=== PATIENT | female | born 1965 | race Caucasian/White ===

== ENCOUNTER 2017-03-02 08:55 | Outpatient (CLI) | payer OTHER ==
[2017-03-02 12:31] LABS: BASOPHILS % (AUTO) 0.4 %; EOSINOPHILS # (AUTO) 0.2 10^3/uL (0.0-0.7); EOSINOPHILS % (AUTO) 1.9 %; HCT - HEMATOCRIT 37.8 % (37.0-47.0); HGB - HEMOGLOBIN 12.8 g/dL (12.0-16.0); LYMPHOCYTES # (AUTO) 2.4 10^3/uL (1.5-3.5); LYMPHOCYTES % (AUTO) 25.2 %; MEAN CORPUSCULAR HEMOGLOBIN 28.6 pg (27.0-31.0); MEAN CORPUSCULAR HGB CONC 33.7 g/dL (32.0-36.0); MEAN CORPUSCULAR VOLUME 84.7 fL (81.0-99.0); MEAN PLATELET VOLUME 8.1 fL (7.9-10.8); MONOCYTES # (AUTO) 0.6 10^3/uL (0.0-1.0); MONOCYTES % (AUTO) 6.2 %; NEUTROPHILS # (AUTO) 6.2 10^3/uL (1.5-6.6); NEUTROPHILS % (AUTO) 66.3 %; NUCLEATED RED BLOOD CELLS AUTO 0.1 /100WBC; RED BLOOD COUNT 4.47 10^6/uL (4.20-5.40); RED CELL DISTRIBUTION WIDTH 14.3 % (12.0-15.0); UNCORRECTED WHITE BLOOD COUNT 9.4 x10^3/uL; WHITE BLOOD COUNT 9.4 x10^3/uL (4.8-10.8)
[2017-03-02 13:09] LABS: HEMOGLOBIN A1C 0.54 g/dL
[2017-03-02 14:02] LABS: ALBUMIN/GLOBULIN RATIO 1.3 (1.0-2.2); BILIRUBIN,TOTAL 0.6 mg/dL (0.2-1.0); BUN - BLOOD UREA NITROGEN 14 mg/dL (6-20); CALCIUM 9.1 mg/dL (8.5-10.3); CARBON DIOXIDE - CO2 25 mmol/L (21-32); CHLORIDE 103 mmol/L (101-111); CHOLESTEROL 208 mg/dL; CREATININE 0.7 mg/dL (0.4-1.0); GFR - MDRD 89 (>89); GLUCOSE 101 mg/dL (70-100); HDL CHOLESTEROL 52 mg/dL; LDL/HDL RATIO 2.2 (<4.4); POTASSIUM 4.2 mmol/L (3.5-5.0); SODIUM 136 mmol/L (135-145); TOTAL PROTEIN 7.3 g/dL (6.7-8.2); TRIGLYCERIDES 200 mg/dL; VLDL CHOLESTEROL 40 mg/dL
[2017-03-03 04:27] LABS: TEST RESULT REPORT (())
[2017-03-05 00:02] LABS: HSV 1/2 IGM INDEX <0.90 INDEX (()); HSV 2 IGG INDEX <0.90 INDEX (())
== END 2017-03-02 08:56 | disposition home or self-care (01) ==
LOC: LAB.WCP 08:55
PROVIDERS: ATTEND Family Medicine
DX: Z00.00 Encounter for general adult medical examination without abnormal findings (principal); I10 Essential (primary) hypertension; E78.5 Hyperlipidemia, unspecified; Z11.3 Encounter for screening for infections with a predominantly sexual mode of transmission
CPT/HCPCS: 36415; 80053; 80061; 81599; 83036; 84443; 85025; 86694; 86695; 86696; 86803; 87389; 87491; 87591

== ENCOUNTER 2017-03-28 13:34 | Outpatient (CLI) | payer OTHER ==
--- NOTE | 2017-03-29 12:56 | Mammography Report ---
DIGITAL SCREENING MAMMOGRAM: 03/28/2017 COMPARISON: 08/23/2014 TECHNIQUE: Bilateral digital CC, MLO, and left true lateral images are obtained. FINDINGS: There is extensive fatty replacement of the breast tissue. A small focal area of increase d density in the lower inner left breast appears unchanged. Scattered benign-appearing calcification s are stable. No new suspicious dominant mass, architectural distortion, skin thickening, suspicious microcalcifications, or interval change. IMPRESSION: NEGATIVE. BIRADS CATEGORY 1. SUGGEST ROUTINE SCREENING IN 12 MONTHS. STANDARD QUALIFYING STATEMENTS 1. This examination was reviewed with the aid of Computer-Aided Detection (CAD). 2. A negative or benign imaging report should not delay biopsy if clinically suspicious findings are present. Consider surgical consultation if warranted. More than 5% of cancers are not identified by i maging. 3. Dense breasts may obscure an underlying neoplasm. JOB #: [id number] EXT JOB #:[id number]
== END 2017-03-28 13:35 | disposition home or self-care (01) ==
LOC: DI 13:34
PROVIDERS: ATTEND Family Medicine
DX: N63 Unspecified lump in breast (principal)
CPT/HCPCS: 77066

== ENCOUNTER 2017-03-30 08:31 | Outpatient (CLI) | payer OTHER ==
--- NOTE | 2017-03-30 10:43 | Ultrasound Report ---
LEFT BREAST ULTRASOUND: 03/30/2017 HISTORY: Palpable lump left breast 11 o'clock position, nipple +7. TECHNIQUE: Real-time scanning by the team physician with saved static images reviewed. FINDINGS: In the area of the palpable lump, no cystic or solid mass is seen. No evidence of archite ctural distortion or calcification. IMPRESSION: NEGATIVE LEFT BREAST UPPER INNER QUADRANT ULTRASOUND. SUGGEST CLINICAL FOLLOWUP. JOB #: [id number] EXT JOB #:[id number]
== END 2017-03-30 08:32 | disposition home or self-care (01) ==
LOC: DI 08:31
PROVIDERS: ATTEND Family Medicine
DX: N63 Unspecified lump in breast (principal)
CPT/HCPCS: 76642

== ENCOUNTER 2017-08-09 08:00 | Outpatient (CLI) | payer OTHER ==
[2017-08-09 13:00] LABS: BASOPHILS # (AUTO) 0.1 10^3/uL (0.0-0.1); BASOPHILS % (AUTO) 0.7 %; EOSINOPHILS # (AUTO) 0.2 10^3/uL (0.0-0.7); EOSINOPHILS % (AUTO) 2.3 %; HGB - HEMOGLOBIN 13.1 g/dL (12.0-16.0); LYMPHOCYTES # (AUTO) 2.2 10^3/uL (1.5-3.5); LYMPHOCYTES % (AUTO) 30.7 %; MEAN CORPUSCULAR HEMOGLOBIN 28.4 pg (27.0-31.0); MEAN CORPUSCULAR HGB CONC 33.5 g/dL (32.0-36.0); MEAN CORPUSCULAR VOLUME 84.9 fL (81.0-99.0); MEAN PLATELET VOLUME 8.4 fL (7.9-10.8); MONOCYTES # (AUTO) 0.5 10^3/uL (0.0-1.0); MONOCYTES % (AUTO) 6.5 %; NEUTROPHILS # (AUTO) 4.3 10^3/uL (1.5-6.6); NEUTROPHILS % (AUTO) 59.8 %; PLT - PLATELET COUNT 225 10^3/uL (130-450); RED BLOOD COUNT 4.59 10^6/uL (4.20-5.40); RED CELL DISTRIBUTION WIDTH 14.3 % (12.0-15.0); WHITE BLOOD COUNT 7.3 x10^3/uL (4.8-10.8)
[2017-08-09 13:45] LABS: ALBUMIN 4.4 g/dL (3.2-5.5); ALBUMIN/GLOBULIN RATIO 1.4 (1.0-2.2); ALKALINE PHOSPHATASE 45 IU/L (42-121); ALT ALANINE AMINOTRANSFERASE 52 IU/L (10-60); AST ASPARTATE AMINOTRANSFERASE 42 IU/L (10-42); BILIRUBIN,TOTAL 0.5 mg/dL (0.2-1.0); BUN - BLOOD UREA NITROGEN 18 mg/dL (6-20); CALCIUM 9.2 mg/dL (8.5-10.3); CARBON DIOXIDE - CO2 24 mmol/L (21-32); CHLORIDE 105 mmol/L (101-111); CHOLESTEROL 157 mg/dL; CREATININE 0.8 mg/dL (0.4-1.0); GFR - MDRD 76 (>89); GLUCOSE 92 mg/dL (70-100); HDL CHOLESTEROL 39 mg/dL; LDL CHOLESTEROL,CALCULATED 91 mg/dL; LDL/HDL RATIO 2.3 (<4.4); SODIUM 135 mmol/L (135-145); TOTAL PROTEIN 7.6 g/dL (6.7-8.2); VLDL CHOLESTEROL 27 mg/dL
[2017-08-09 14:01] LABS: HB2 TOTAL 14.4 g/dL; HEMOGLOBIN A1C 0.5 g/dL; HEMOGLOBIN A1C % 5.3 % (4.6-6.2)
== END 2017-08-09 08:01 | disposition home or self-care (01) ==
LOC: LAB.WCP 08:00
PROVIDERS: ATTEND Family Medicine
DX: I10 Essential (primary) hypertension (principal); E78.5 Hyperlipidemia, unspecified; R73.09 Other abnormal glucose; F41.8 Other specified anxiety disorders
CPT/HCPCS: 36415; 80053; 80061; 83036; 83721; 84443; 85025

== ENCOUNTER 2017-09-28 08:00 | Outpatient (CLI) | payer OTHER | END 2017-09-28 08:01 | disposition home or self-care (01) | LOC: LAB.WCP 08:00 | PROVIDERS: ATTEND Physician Assistant | DX: R35.0 Frequency of micturition (principal) | CPT/HCPCS: 87086 ==

== ENCOUNTER 2017-11-01 08:00 | Outpatient (CLI) | payer OTHER | END 2017-11-01 08:01 | disposition home or self-care (01) | LOC: LAB.R 08:00 | PROVIDERS: ATTEND Family Medicine | DX: B37.3 Candidiasis of vulva and vagina (principal) | CPT/HCPCS: 87480; 87510; 87660 ==

== ENCOUNTER 2018-03-03 08:15 | Outpatient (CLI) | payer OTHER ==
[2018-03-03 09:00] LABS: HB2 TOTAL 14.7 g/dL; HEMOGLOBIN A1C 0.47 g/dL; HEMOGLOBIN A1C % 5.1 % (4.6-6.2)
[2018-03-03 09:01] LABS: ALBUMIN 4.3 g/dL (3.2-5.5); ALBUMIN/GLOBULIN RATIO 1.3 (1.0-2.2); ALKALINE PHOSPHATASE 55 IU/L (42-121); ALT ALANINE AMINOTRANSFERASE 32 IU/L (10-60); AST ASPARTATE AMINOTRANSFERASE 25 IU/L (10-42); BILIRUBIN,TOTAL 0.9 mg/dL (0.2-1.0); BUN - BLOOD UREA NITROGEN 14 mg/dL (6-20); CALCIUM 9.1 mg/dL (8.5-10.3); CARBON DIOXIDE - CO2 22 mmol/L (21-32); CHLORIDE 107 mmol/L (101-111); CHOL/HDL RATIO 3.5 (<4.4); CHOLESTEROL 149 mg/dL; CREATININE 0.7 mg/dL (0.4-1.0); GFR - MDRD 89 (>89); GLUCOSE 110 mg/dL (70-100); HDL CHOLESTEROL 42 mg/dL; LDL CHOLESTEROL,CALCULATED 84 mg/dL; SODIUM 138 mmol/L (135-145); TOTAL PROTEIN 7.5 g/dL (6.7-8.2); VLDL CHOLESTEROL 23 mg/dL
== END 2018-03-03 08:16 | disposition home or self-care (01) ==
LOC: LAB 08:15
PROVIDERS: ATTEND Family Medicine
DX: E78.5 Hyperlipidemia, unspecified (principal); R73.03 Prediabetes
CPT/HCPCS: 36415; 80053; 80061; 83036; 83721

== ENCOUNTER 2018-08-16 15:14 | Outpatient (CLI) | payer OTHER ==
--- NOTE | 2018-08-17 08:10 | Mammography Report ---
Reason: SCREENING MAMMO Procedure Date: 08/16/2018 Accession Number: [id number] / [id number] Procedure: COLLEEN - Screening Mammo w/Juan CPT Code: FULL RESULT: EXAM: Screening Mammo w/Juan DATE: 08/16/2018 4:04 PM CLINICAL HISTORY: Routine screening. No reported personal or family history of breast cancer. History of prior breast reduction surgery. TECHNIQUE: Bilateral CC and MLO views were obtained. COMPARISON: 9 02/25/2017 through 08/23/2014 FINDINGS: The breasts demonstrate scattered fibroglandular densities bilaterally. Bilateral breasts: There are stable reduction mammoplasty changes. There are no suspicious masses, calcifications or areas of distortion. IMPRESSION: Benign findings RECOMMENDATION: Routine annual screening unless otherwise clinically indicated. BI-RADS CATEGORY 2: Benign findings STANDARD QUALIFYING STATEMENTS: 1. This examination was not reviewed with the aid of Computer-Aided Detection (CAD). 2. A negative or benign imaging report should not preclude biopsy if clinically suspicious findings are present. 3. Dense breasts may obscure an underlying neoplasm. 4. This examination was reviewed with the aid of 3D breast imaging (tomosynthesis).
== END 2018-08-16 15:15 | disposition home or self-care (01) ==
LOC: DI 15:14
DX: Z12.31 Encounter for screening mammogram for malignant neoplasm of breast (principal)
CPT/HCPCS: 77063; 77067

== ENCOUNTER 2018-12-08 08:00 | Outpatient (CLI) | payer OTHER ==
[2018-12-08 19:09] LABS: ALBUMIN 3.9 g/dL (3.2-5.5); ALBUMIN/GLOBULIN RATIO 1.3 (1.0-2.2); ALKALINE PHOSPHATASE 55 IU/L (42-121); ALT ALANINE AMINOTRANSFERASE 24 IU/L (10-60); AST ASPARTATE AMINOTRANSFERASE 23 IU/L (10-42); BILIRUBIN,TOTAL 0.4 mg/dL (0.2-1.0); BUN - BLOOD UREA NITROGEN 17 mg/dL (6-20); CALCIUM 8.8 mg/dL (8.5-10.3); CARBON DIOXIDE - CO2 24 mmol/L (21-32); CHLORIDE 104 mmol/L (101-111); CHOL/HDL RATIO 3.1 (<4.4); CHOLESTEROL 189 mg/dL; CREATININE 0.6 mg/dL (0.4-1.0); GFR - MDRD 105 (>89); GLUCOSE 83 mg/dL (70-100); HDL CHOLESTEROL 61 mg/dL; LDL CHOLESTEROL,CALCULATED 101 mg/dL; LDL/HDL RATIO 1.7 (<4.4); SODIUM 137 mmol/L (135-145); VLDL CHOLESTEROL 27 mg/dL
[2018-12-08 19:14] LABS: HB2 TOTAL 12.8 g/dL; HEMOGLOBIN A1C 0.46 g/dL; HEMOGLOBIN A1C % 5.4 % (4.6-6.2)
== END 2018-12-08 23:59 | disposition home or self-care (01) ==
LOC: LAB.WCP 08:00
PROVIDERS: ATTEND Family Medicine
DX: E78.5 Hyperlipidemia, unspecified (principal); R73.03 Prediabetes
CPT/HCPCS: 36415; 80053; 80061; 83036; 83721

== ENCOUNTER 2019-03-29 12:59 | Outpatient (CLI) | payer OTHER | END 2019-03-29 13:00 | disposition home or self-care (01) | LOC: RT 12:59 | PROVIDERS: ATTEND Internal Medicine Gastroenterology | DX: I10 Essential (primary) hypertension (principal) | CPT/HCPCS: 93005 ==

== ENCOUNTER 2019-08-21 10:10 | Outpatient (CLI) | payer BC, OTHER ==
[2019-08-21 12:05] LABS: BASOPHILS # (AUTO) 0.1 10^3/uL (0.0-0.1); BASOPHILS % (AUTO) 0.6 %; EOSINOPHILS # (AUTO) 0.4 10^3/uL (0.0-0.7); EOSINOPHILS % (AUTO) 4.4 %; HGB - HEMOGLOBIN 12.4 g/dL (12.0-16.0); LYMPHOCYTES # (AUTO) 2.5 10^3/uL (1.5-3.5); LYMPHOCYTES % (AUTO) 29.8 %; MEAN CORPUSCULAR HEMOGLOBIN 27.9 pg (27.0-31.0); MEAN CORPUSCULAR HGB CONC 31.6 g/dL (32.0-36.0); MEAN CORPUSCULAR VOLUME 88.5 fL (81.0-99.0); MEAN PLATELET VOLUME 9.7 fL (7.9-10.8); MONOCYTES # (AUTO) 0.6 10^3/uL (0.0-1.0); MONOCYTES % (AUTO) 6.5 %; NEUTROPHILS # (AUTO) 4.9 10^3/uL (1.5-6.6); NEUTROPHILS % (AUTO) 58.1 %; PLT - PLATELET COUNT 242 10^3/uL (130-450); RED BLOOD COUNT 4.44 10^6/uL (4.20-5.40); RED CELL DISTRIBUTION WIDTH 13.6 % (12.0-15.0); WHITE BLOOD COUNT 8.4 x10^3/uL (4.8-10.8)
[2019-08-21 12:30] LABS: HB2 TOTAL 12.1 g/dL; HEMOGLOBIN A1C 0.47 g/dL; HEMOGLOBIN A1C % 5.7 % (4.6-6.2)
[2019-08-21 12:43] LABS: ALBUMIN 4.2 g/dL (3.2-5.5); ALBUMIN/GLOBULIN RATIO 1.3 (1.0-2.2); ALKALINE PHOSPHATASE 52 IU/L (42-121); ALT ALANINE AMINOTRANSFERASE 33 IU/L (10-60); AST ASPARTATE AMINOTRANSFERASE 28 IU/L (10-42); BILIRUBIN,TOTAL 0.7 mg/dL (0.2-1.0); BUN - BLOOD UREA NITROGEN 17 mg/dL (6-20); CALCIUM 8.8 mg/dL (8.5-10.3); CARBON DIOXIDE - CO2 25 mmol/L (21-32); CHLORIDE 103 mmol/L (101-111); CHOL/HDL RATIO 4.1 (<4.4); CHOLESTEROL 221 mg/dL; CREATININE 0.7 mg/dL (0.4-1.0); GFR - MDRD 88 (>89); GLUCOSE 96 mg/dL (70-100); HDL CHOLESTEROL 54 mg/dL; LDL CHOLESTEROL,CALCULATED 128 mg/dL; LDL/HDL RATIO 2.4 (<4.4); SODIUM 134 mmol/L (135-145); TOTAL PROTEIN 7.4 g/dL (6.7-8.2); VLDL CHOLESTEROL 39 mg/dL
== END 2019-08-21 23:59 | disposition home or self-care (01) ==
LOC: LAB.WCP 10:10
PROVIDERS: ATTEND Nurse Practitioner Family
DX: I10 Essential (primary) hypertension (principal); R73.09 Other abnormal glucose; E78.5 Hyperlipidemia, unspecified
CPT/HCPCS: 36415; 80053; 80061; 83036; 83721; 84443; 85025

== ENCOUNTER 2019-10-23 11:55 | Outpatient (CLI) | payer BC | END 2019-10-23 11:56 | disposition home or self-care (01) | LOC: LAB 11:55 | PROVIDERS: ATTEND Nurse Practitioner Family | DX: N39.0 Urinary tract infection, site not specified (principal) | CPT/HCPCS: 87086; 87181 ==

== ENCOUNTER 2020-06-19 15:26 | Outpatient (CLI) | payer BC | END 2020-06-19 15:27 | disposition home or self-care (01) | LOC: COV 15:26 | PROVIDERS: ATTEND Family Medicine | DX: M79.10 Myalgia, unspecified site (principal); R53.83 Other fatigue; Z20.828 Contact with and (suspected) exposure to other viral communicable diseases ==

== ENCOUNTER 2020-09-05 15:24 | Outpatient (CLI) | payer BC | END 2020-09-05 15:25 | disposition home or self-care (01) | LOC: COV 15:24 | PROVIDERS: ATTEND Surgery | DX: Z01.812 Encounter for preprocedural laboratory examination (principal); K21.9 Gastro-esophageal reflux disease without esophagitis; Z92.83 Personal history of failed moderate sedation; Z20.822 Contact with and (suspected) exposure to COVID-19 ==

== ENCOUNTER 2020-09-09 08:52 | Day surgery (SDC) | payer BC ==
[2020-09-09] MEDS ORDERED: LACTATED RINGERS 1,000 ML IV ONE ×2 (09:37→11:36)
--- NOTE | 2020-09-09 10:09 | ANESTHESIA ---
Pre-Anesthesia VS, & Labs - Diagnosis Screening - Procedure EGD Height: 5 ft 1 in Weight (kg): 117 kg Body Mass Index: 48.7 BMI Classification: Morbidly Obese - NPO >8 hours - Is Patient ?: No Home Medications and Allergies Home Medications: Ambulatory Orders Lactobacillus Acidophilus [Probiotic Acidophilus] 1 each PO DAILY 09/01/20 Lidocaine [Lidoderm] 1 each TP DAILY PRN 09/01/20 Multivitamin 1 each PO DAILY 09/01/20 Pantoprazole Sodium 20 mg PO BID 09/01/20 Citalopram Hydrobromide [Citalopram HBr] 40 mg PO DAILY 04/10/[address] [Voltaren] 75 mg PO BIDWM 04/10/19 Pravastatin Sodium 20 mg PO QPM 04/10/19 carvediloL [Carvedilol] 25 mg PO BID 04/10/19 Lactobacillus Acidophilus [Probiotic Acidophilus] 1 each PO DAILY 09/01/20 Lidocaine [Lidoderm] 1 each TP DAILY PRN 09/01/20 Multivitamin 1 each PO DAILY 09/01/20 Pantoprazole Sodium 20 mg PO BID 09/01/20 Allergies/Adverse Reactions: Allergies Allergy/AdvReac Type Severity Reaction Status Date / Time Sulfa (Sulfonamide Allergy Rash Verified 09/09/20 09:25 Antibiotics) adhesive AdvReac Itching Verified 09/09/20 09:25 hydrocodone [From Vicodin] AdvReac Itching Verified 09/09/20 09:25 morphine AdvReac Itching Verified 09/09/20 09:25 oxycodone [From Percocet] AdvReac Nausea Verified 09/09/20 09:25 Anes History & Medical History - Medical History Cardiovascular: reports: Hypertension, High cholesterol Pulmonary: reports: Sleep apnea, CPAP use Gastrointestinal: reports: GERD Urinary: reports: Other Musculoskeletal: reports: Chronic back pain Endocrine/Autoimmune: reports: None Skin: reports: None - Surgical History General: reports: Cholecystectomy, Colonoscopy, EGD Gynecologic: reports: section, Hysterectomy, Breast reduction Exam General: Alert, Oriented x3, Cooperative Dental: WNL Mouth Openin Fingerbreadth Mallampati classification: II Thyromental Distance: 4-6 cm Respiratory: Lungs clear Plan Anesthesia Type: General Consent for Procedure(s) Verified and Reviewed: Yes Code Status: Attempt Resuscitation ASA classification: 3-Severe systemic disease Is this case an emergency?: No
[2020-09-09 11:39] VITALS: BP 117/65
--- NOTE | 2020-09-09 12:18 | ANESTHESIA POST OP EVALUATION ---
Anesthesia Post Eval - Post Anesthesia Eval Vitals: Last Vital Signs Temp 36.4 C L 09/09/20 11:37 Pulse 71 09/09/20 11:37 Resp 18 09/09/20 11:37 BP 117/65 09/09/20 11:37 Pulse Ox 100 09/09/20 11:37 CV Function Including HR & BP: positive: Stable Pain Control: positive: Satisfactory Nausea & Vomiting: positive: Negative Mental Status: positive: Patient Participates Respiratory Status: Airway Patent Hydration Status: Satisfactory Anesthesia Complications: positive: None
== END 2020-09-09 08:53 | disposition home or self-care (01) ==
LOC: SDS 08:52
PROVIDERS: ATTEND Surgery
PROC: 0DB78ZX Excision of Stomach, Pylorus, Via Natural or Artificial Opening Endoscopic, Diagnostic (ICD-10-PCS; 2020-09-09)
PROC: 0DB68ZZ Excision of Stomach, Via Natural or Artificial Opening Endoscopic (ICD-10-PCS; principal; 2020-09-09 10:15)
DX: K21.9 Gastro-esophageal reflux disease without esophagitis (principal); K31.7 Polyp of stomach and duodenum; K29.50 Unspecified chronic gastritis without bleeding; K29.80 Duodenitis without bleeding; I10 Essential (primary) hypertension; R73.03 Prediabetes; E78.5 Hyperlipidemia, unspecified; G47.33 Obstructive sleep apnea (adult) (pediatric); F41.8 Other specified anxiety disorders; F40.240 Claustrophobia; G89.29 Other chronic pain; M54.5 Low back pain; E66.01 Morbid (severe) obesity due to excess calories; Z68.42 Body mass index [BMI] 45.0-49.9, adult; Z80.0 Family history of malignant neoplasm of digestive organs; Z92.84 Personal history of unintended awareness under general anesthesia; Z79.899 Other long term (current) drug therapy; Z87.891 Personal history of nicotine dependence
CPT/HCPCS: 43239; 43251; J7120

== ENCOUNTER 2021-02-12 08:00 | Outpatient (CLI) | payer BC ==
[2021-02-12 12:33] LABS: ESTIMATED AVERAGE GLUCOSE 111 mg/dL (70-100); HEMOGLOBIN A1c% 5.5 % (4.27-6.07)
[2021-02-12 13:02] LABS: FOLLICLE STIMULATING HORMONE 28.6 mIU/mL
[2021-02-12 13:03] LABS: LUTEINIZING HORMONE 32.91 mIU/mL
== END 2021-02-12 08:01 | disposition home or self-care (01) ==
LOC: LAB.R 08:00
PROVIDERS: ATTEND Nurse Practitioner
DX: N95.9 Unspecified menopausal and perimenopausal disorder (principal); R73.03 Prediabetes
CPT/HCPCS: 83001; 83002; 83036

== ENCOUNTER 2021-03-12 08:04 | Outpatient (CLI) | payer BC ==
--- NOTE | 2021-03-12 08:50 | SLEEP CARE CONSULTATION ---
Information from patient questionnaire entered by Stephanie Britt. I have reviewed and concur with the information entered by Stephanie Britt. This document represents the service I personally performed and the decisions made by me, Marry Le ARNP. History of Present Illness Service Date and Time: 03/12/2021 0804 Reason for Visit: New patient, Previously diagnosed sleep apnea, sleep apnea on CPAP therapy Chief Complaint: reports: Snoring, Observed pauses in breathing, Other (update supplies) Date of Onset: years Usual bedtime: 8-9 pm Time it takes to fall asleep: 20 minutes Snores at night: Yes Observed to quit breathing while asleep: Yes Sleeps alone due to snoring: No Number of times waking at night: several Reasons for waking at night: reports: Bathroom, Other (dog, child) Toss, Turn, or Twitch while sleeping: Yes Recalls having dreams: Yes Usually gets out of bed at: 6 am Feels refreshed in the morning: No Morning headache: No Sleepy or fatigued during the day: Yes Ever fallen asleep while driving: Yes (long time ago) Takes day naps: Yes (on weekends) Dreams during day naps: No Prior sleep studies: Yes Additional HPI information: COREY YOUNG was previously diagnosed to have unknown sleep apnea-hypopnea syndrome and comes in today to establish care for CPAP therapy and to update supplies. She was originally diagnosed around 2004. Her machine stopped working in August 2019 and she has not been using a CPAP since then. - Parasomnia Symptoms Ever been unable to move upon waking from sleep: No Walks in sleep: No Talks in sleep: Yes Ever acted out dreams in sleep: Yes Ever felt weak in the knees when startled or emotional: Yes Bothered by creepy, crawly, restless sensations in legs: No (just pain) Problems with memory or concentration: Yes CPAP Compliance Data - Data Reviewed with Patient Average duration of nightly device use: 6 hours 22 mins Compliance rate %: 56.7 (07/27/2019 - 08/25/2019) Current pressure setting (cmH2O): 6-12 Average residual AHI: 1.5 Compliance data discussion: She was using a over the nose nasal mask. She was getting her supplies from [employer]. She has not been able to use her device since August 2019 because it just stopped working. Subjective Observed to snore while using device: No Current pressure setting perceived as: comfortable On therapy, patient: reports: sleeping better, awakening more refreshed, being more awake and alert during the day, more rested overall. 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 Patient is Single and lives in [place]. Have you smoked in the past 12 months: No Cigarettes per day (20/pack): 1 (in my teen's to early 20's) Alcohol use: Yes Alcohol amount and frequency: 1-2 drinks a month Caffeine use: Yes Caffeine amount and frequency: 4 cups daily Family History Family history of sleep disordered breathing: No Allergies and Home Medications Drug allergies reviewed: Yes (sulfa, adhesive, hydrocodone, latex) Home medication list reviewed: Yes (see list in chart) Review of Systems Weight gain over past 5 years: 80 Weight loss over past 5 years: 80 Cardiovascular: reports: high blood pressure Gastrointestinal: reports: diarrhea, other (GERD). denies: heartburn Neurological: reports: gait or balance problems. denies: headaches Psychiatric: reports: Attention Deficit Hyperactivity, anxiety, depression, claustrophobia Ear/Nose/Throat: reports: dry mouth/throat, other (ear pain) Endocrine: reports: sluggishness, unexplained weakness Musculoskeletal: reports: joint pain, neck pain, back pain, muscle pain or cramping, mobility problems Physical Exam Blood Pressure: 120/76 Cuff size: wrist Heart Rate: 70 O2 Saturation: 98 Height: 5 ft 1 in Weight: 266 lb Body Mass Index: 50.2 BMI Classification: Morbidly Obese Heart: regular rate and rhythm Lungs: clear bilaterally Impression and Plan 1. Obstructive Sleep Apnea-Hypopnea Syndrome, unknown. On CPAP therapy, the patient has better sleep quality and is more rested overall. Patient has had previous sleep studies and we do have a copy of a titration study but diagnostic. Patient has not been able to use her CPAP because it quit working in August 2019. I recommend proceeding to polysomnography to confirm the diagnosis and to assess severity. I obtained agreement to proceed. The pathophysiology of obstructive sleep apnea-hypopnea syndrome was discussed with the patient and health risks of cardiovascular and cerebrovascular disease if not treated. 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 Patient's apnea severity and rationale for treatment to reduce apnea, improve sleep quality and reduce cardiovascular and cerebrovascular events was reviewed. I also reviewed the benefit of consistent device use of CPAP for hypertension, gastric reflux, and depression. Patient agreed to plan. * Schedule polysomnography +- manual CPAP titration study. * Avoid long distance driving or driving when feeling sleepy. * Avoid alcohol, sedative and muscle relaxant around bedtime. * Attempt to lose weight. * Review instructions provided by trained office staff on how to prepare for the sleep study. * Return for follow-up after sleep study completed. Counseling Topics: Weight loss health impact Visit Type: In Office Time Spent with Patient (minutes): 31 Provider Statement: I spent 100% of the Face to Face Visit with the patient with greater than 50% spent counseling the patient and coordination of care.
[2021-03-12 08:55] VITALS: BP 120/76
== END 2021-03-12 08:05 | disposition home or self-care (01) ==
LOC: SC 08:04
PROVIDERS: ATTEND Nurse Practitioner Family
DX: G47.33 Obstructive sleep apnea (adult) (pediatric) (principal); E66.01 Morbid (severe) obesity due to excess calories; Z68.43 Body mass index [BMI] 50.0-59.9, adult; Z87.891 Personal history of nicotine dependence
CPT/HCPCS: 99203; 99212

== ENCOUNTER 2021-03-19 08:37 | Outpatient (CLI) | payer BC | END 2021-03-19 08:38 | disposition home or self-care (01) | LOC: SC 08:37 | PROVIDERS: ATTEND Nurse Practitioner Family | DX: G47.33 Obstructive sleep apnea (adult) (pediatric) (principal); I10 Essential (primary) hypertension; F32.9 Major depressive disorder, single episode, unspecified; R09.02 Hypoxemia | CPT/HCPCS: 95806 ==

== ENCOUNTER 2021-04-01 09:25 | Outpatient (CLI) | payer BC ==
--- NOTE | 2021-04-01 08:47 | SLEEP CARE CONSULTATION ---
Information from patient questionnaire entered by Anna Lipscomb. I have reviewed and concur with the information entered by Anna Lipscomb. This document represents the service I personally performed and the decisions made by , Marry Le ARNP. History of Present Illness Service Date and Time: 04/01/2021 0840 Initial [place] Sleepiness Scale score: 12 (in 2020) Current [place] Sleepiness Scale score: 12 Additional HPI information: COREY YOUGN returns via video Telehealth visit for follow up and results of the recently performed home sleep study. I explained the pathophysiology behind obstructive sleep apnea. We then spent qu ite a bit of time discussing different treatment options. For mild obstructive sleep apnea, surgery and oral appliance are alternatives to nasal CPAP therapy but in moderate or severe cases, nasal CPAP is the most effective and reliable treatment. Because apnea is primarily in supine position, then positional management therapy could be effective. I reviewed the impact of weight changes on sleep apnea and strongly recommended losing weight. After some discussion, the patient opted to go with the nasal CPAP therapy. Nasal autoCPAP set at 4-15 cmH20 will be ordered with rationale explained. A manual titration study will be ordered if unable to find optimal pressure with office adjustments. I explained how CPAP machine works and what to expect when using the machine. Using CPAP every night in order to get used to it was emphasized. Patient advised to put CPAP mask on before getting into bed so as not to fall asleep without CPAP. To assist acclimation to CPAP use, it could also be used for a short time during day while reading or watching TV. The patient was instructed to call the CPAP supplier to discuss any mechanical problem that may occur. If the mask given is uncomfortable or is difficult to keep on through the night even with adjustment, contact the CPAP supplier as many will replace with another mask style if notified before 30 days. If snoring or perceives is not getting enough air or too much air from the machine, notify this office. Patient counseled not drink alcohol less than 4 hours before bedtime as it can increase snoring and apnea. Patient was cautioned about risks of drowsy driving until sleepiness symptoms resolve. Sleep Study - Results Type of Sleep Study: Home sleep study Prior sleep studies: Yes Year and Where: 03/2021 [facility] Polysomnography/Home Sleep Study results: Physician Impression: The quality of the study is good. The length of the study is adequate (> 240 minutes). Please also see the tabulated and graphic data. 1. Obstructive Sleep Apnea-Hypopnea (ICD-10 G47.33), mild, with an AHI of 5.7/hr and hermila SaO2 of 78%. During the study, the patient had 26 apneas (26 obstructive, 0 central, 0 mixed) and 29 hypopneas. The longest episode lasted 59.0 seconds. The patient did not sleep supine during this study (supine AHI was 0, and non-supine, 5.75). 2. Hypoxemia (ICD-10 R09.02), moderate, with the lowest oxygen saturation of 78 % and 10.6 minutes with SaO2 under 90%. Baseline oxygen saturation was normal (Average oxygen saturation was 94%). Allergies and Home Medications Home medication list reviewed: Yes (Ozempic started, 0.25 weekly) Review of Systems Review of systems same as previous: Yes (no changes) Physical Exam Vital signs obtained and entered by: Telehealth visit to reduce exposure during Covid pandemic Height: 5 ft 1 in Impression and Plan 1. Obstructive Sleep Apnea-Hypopnea Syndrome, mild, with lowest oxygen saturation of 78%. Obviously this is the cause of the patients symptoms of unrefreshed sleep, and excessive daytime sleepiness. Positive pressure therapy could benefit hypertension, depression and gastric reflux. The patient will be restarted on nasal autoCPAP therapy with pressure set at 4-15 cmH2O. A manual titration study will be completed if unable to find optimal treatment pressure with office adjustments. Compliance guidelines also reviewed. A copy of compliance guidelines will be given for reference at check out. 2. Hypoxemia, moderate, with the lowest oxygen saturation of 78 % and 10.6 minutes with SaO2 under 90%. Her baseline oxygen saturation was normal with an average oxygen saturation of 94%. * Nasal auto CPAP therapy, pressure at 4-15 cm H2O. * Attempt to lose weight. * Avoid alcohol consumption near bedtime. * Avoid supine sleep until using CPAP. * The patient is again cautioned about driving until sleepiness completely resolves. * Return one month after CPAP obtained. I will assess response to therapy and compliance at that time. Counseling Topics: Weight loss health impact Visit Type: Telehealth Video Video Type: VSee Patient Location: at work Location of Provider: Office Patient agrees and consents to this telehealth visit type: Yes Patient agrees to have their insurance billed: Yes Time Spent with Patient (minutes): 12 Provider Statement: I spent 100% of the Telehealth Video Call with the patient with greater than 50% spent counseling the patient and coordination of care.
== END 2021-04-01 09:26 | disposition home or self-care (01) ==
LOC: SC 09:25
PROVIDERS: ATTEND Nurse Practitioner Family
DX: G47.33 Obstructive sleep apnea (adult) (pediatric) (principal); R09.02 Hypoxemia

== ENCOUNTER 2021-08-24 15:03 | Outpatient (CLI) | payer BC, OTHER ==
--- NOTE | 2021-08-24 15:56 | XRAY Report ---
PROCEDURE: Elbow 3 View LT INDICATIONS: CONTUSION OF L ELBOW TECHNIQUE: 3 views of the elbow were acquired. COMPARISON: None. FINDINGS: BONES/JOINT: No acute, displaced fracture or dislocation. No appreciable joint effusion. SOFT TISSUES: Prominent edema overlying the olecranon. IMPRESSION: 1.No acute osseous abnormality of the elbow. Reviewed by: Wil Mckeon MD on 08/24/2021 3:54 PM PST Approved by: Wil Mckeon MD on 08/24/2021 3:54 PM PST Station ID: [id number]
== END 2021-08-24 23:59 | disposition home or self-care (01) ==
LOC: DI.N 15:03
PROVIDERS: ATTEND Physician Assistant
DX: S50.02XA Contusion of left elbow, initial encounter (principal)

== ENCOUNTER 2022-03-12 08:41 | Outpatient (CLI) | payer OTHER | END 2022-03-12 08:42 | disposition home or self-care (01) | LOC: LAB 08:41 | PROVIDERS: ATTEND Nurse Practitioner | DX: R19.7 Diarrhea, unspecified (principal) | CPT/HCPCS: 87045; 87046; 87177; 87328; 87329; 87427; 87493 ==

== ENCOUNTER 2022-05-17 11:29 | Outpatient (CLI) | payer OTHER ==
--- NOTE | 2022-05-17 13:06 | Ultrasound Report ---
PROCEDURE: Head or Neck Soft Tissue INDICATIONS: THYROID NODULE TECHNIQUE: Real time scanning was performed of the thyroid, with image documentation. COMPARISON: None. FINDINGS: Right thyroid measures 5.6 x 2.4 x 2.1 cm. The left thyroid measures 5.4 x 2.3 x 2.0 cm. The isthmus measures 0.7 cm. Right mid thyroid nodule measures 2.1 x 1.7 x 1.7 cm. It is solid and isoechoic. Margins are smooth. No suspicious echogenic foci. TR 3. Left inferior thyroid nodule measures 1.4 x 0.9 x 0.9 cm. It is solid and hyperechoic. Margins are sm ooth. No suspicious echogenic foci. TR 3. IMPRESSION: TR 3 nodules bilaterally. Right mid thyroid nodule meets criteria for follow-up. Reviewed by: Khris Zepeda MD on 05/17/2022 1:05 PM [facility] Approved by: Khris Zepeda MD on 05/17/2022 1:05 PM [facility] Station ID: [id number]
== END 2022-05-17 11:30 | disposition home or self-care (01) ==
LOC: DI 11:29
PROVIDERS: ATTEND Nurse Practitioner
DX: E04.2 Nontoxic multinodular goiter (principal)

== ENCOUNTER 2022-08-19 13:03 | Outpatient (CLI) | payer OTHER ==
--- NOTE | 2022-08-19 13:33 | SLEEP CARE CONSULTATION ---
Information from patient questionnaire entered by Lou Rogers. I have reviewed and concur with the information entered by Lou Rogers. This document represents the service I personally performed and the decisions made by , Marry Le ARNP. History of Present Illness Service Date and Time: 08/19/2022 1303 Previous diagnosis: Mild, Obstructive Sleep Apnea-Hypopnea Syndrome AHI: 5.7 (in 2020) Reason for follow up: annual (LAST SEEN 03/2021) Equipment type: CPAP (RESMED Airsense 11 s/u 05/31) Equipment obtained from: [facility] (needs updated prescription for supplies) Mask style: Nasal (over the nose) Backup mask available: No (will keep old mask when replaced) Last cushion change: 6 months + Prior sleep studies: Yes Year and Where: 03/2021 [facility] Type of Sleep Study: Home sleep study HPI additional information: COREY YOUNG was diagnosed to have mild, AHI 5.7, obstructive sleep apnea- hypopnea syndrome and returned today for CPAP therapy annual follow-up. Sleep Study - Results Type of Sleep Study: Home sleep study Prior sleep studies: Yes Year and Where: 03/2021 [facility] CPAP Compliance Data - Data Reviewed with Patient Average duration of nightly device use: 9 HRS 11 MIN Compliance rate %: 98 (02/18/22-08/16/22; 178/180 days used) Current pressure setting (cmH2O): 4-15 (median 7.8, avg 11.7, max 13.1) Average residual AHI: 0.8 Central apnea: 0.0 Obstructive apnea: 0.6 Subjective Missed days of use due to: reports: other (power outage) Patient concerns: reports: air blowing in eyes, mask leak noise, dry mouth, nose, throat. denies: aerophagia, mask discomfort, condensation in mask/hose, nasal congestion, epistaxis Observed to snore while using device: No Current pressure setting perceived as: comfortable On therapy, patient: reports: sleeping better, awakening more refreshed, being more awake and alert during the day, more rested overall. denies: drowsiness while driving Initial [place] Sleepiness Scale score: 12 Current [place] Sleepiness Scale score: 7 (08/19/22) Allergies and Home Medications Drug allergies reviewed: Yes (as listed in EMR) Home medication list reviewed: Yes (Wellbutrin) Review of Systems Review of systems same as previous: Yes (no changes) Physical Exam Vital signs obtained and entered by: LOU Amezcua MA Blood Pressure: 122/76 (LEFT ARM) Cuff size: regular Heart Rate: 78 O2 Saturation: 96 Height: 5 ft 1 in Weight: 276 lb Body Mass Index: 52.1 BMI Classification: Morbidly Obese Impression and Plan 1. Obstructive Sleep Apnea-Hypopnea Syndrome, mild, with good treatment compliance and good apnea control. On CPAP therapy, the patient has better sleep quality and is more rested overall. She did not return for her first compliance visit and comes in now to get an updated prescription for supplies. I advised her that she is getting air leaking into eye, mask leak noise and even the mouth dryness because she needs to change her mask cushion more often. Patient given a list of when she should update her supplies. Patient has significant improvement of their sleep apnea and are satisfied with current CPAP therapy. Patient's apnea severity and rationale for treatment to reduce apnea, improve sleep quality and reduce cardiovascular and cerebrovascular events was reviewed. I also reviewed the benefit of consistent device use of CPAP for hypertension, gastric reflux and depression. 2. Obesity, unspecified. Currently patients BMI is 52.1. She is looking into getting bariatric surgery. I advised her on signs to determine need of pressure change after significant weight loss and she voiced understanding. Obesity increases the risk of apnea, CPAP pressure requirements and overall health risks especially cardiovascular and diabetes. Thus patient is advised to lose weight. * Continue auto CPAP pressure at 4-15 cmH2O * Update supplies * Notify me if snoring with mask or feeling that the pressure is too much or too little * Attempt to lose weight * Call this office if any problems using CPAP * Return for follow up in 1 year, or sooner if concerns arise Counseling Topics: Spare mask, Weight loss health impact Visit Type: In Office Time Spent with Patient (minutes): 22 Provider Statement: I spent 100% of the Face to Face Visit with the patient with greater than 50% spent counseling the patient and coordination of care.
[2022-08-19 13:34] VITALS: BP 122/76
== END 2022-08-19 13:04 | disposition home or self-care (01) ==
LOC: SC 13:03
PROVIDERS: ATTEND Nurse Practitioner Family
DX: G47.33 Obstructive sleep apnea (adult) (pediatric) (principal); E66.01 Morbid (severe) obesity due to excess calories; Z68.43 Body mass index [BMI] 50.0-59.9, adult
CPT/HCPCS: 99212; 99213

== ENCOUNTER 2022-09-03 14:22 | Outpatient (CLI) | payer BC, OTHER ==
--- NOTE | 2022-09-07 10:51 | Mammography Report ---
BILATERAL DIGITAL SCREENING MAMMOGRAM 3D/2D: 09/03/2022 CLINICAL: Routine screening. Comparison is made to exams dated: 08/16/2018 mammogram, 03/28/2017 mammogram - [facility], and 08/23/2014 mammogram - [facility]. There are scattered areas of fibroglandular density in both breasts (category b / 25%-50% glandular t issue). No significant masses, calcifications, or other findings are seen in either breast. There has been no significant interval change. IMPRESSION: NEGATIVE There is no mammographic evidence of malignancy. A 1 year screening mammogram is recommended. Based on the Tyrer Cuzick model (a risk assessment model) the patients lifetime risk is 8.3% and her 10 year risk is 2.4%. According to the ACR, ACS, and NCCN guidelines, an annual breast MRI exam anu g with mammogram is recommended if the patients lifetime risk is 20% or greater. This exam was interpreted at Station ID: [id number]. NOTE: For mammograms, a report in lay terms will be sent to the patient. Approximately 15% of breast malignancies will not be visualized mammographically. In the management of a palpable breast mass, a negative mammogram must not discourage biopsy of a clinically suspicious lesion. Electronically Signed By: Khris cade/crys:09/06/2022 09:46:09 letter sent: No_Letter ACR BI-RADS Category 1: Negative [id number] PARENCHYMAL PATTERN: (A) - The breast(s) demonstrate(s) scattered fibroglandular densities. BI-RADS CATEGORY: (1) - 1 RECOMMENDATION: (ANNUAL) - Recommend routine annual screening mammography. [id number] 1 year screening LATERALITY: (B)
== END 2022-09-03 14:23 | disposition home or self-care (01) ==
LOC: DI 14:22
PROVIDERS: ATTEND Nurse Practitioner
DX: Z12.31 Encounter for screening mammogram for malignant neoplasm of breast (principal)

== ENCOUNTER 2022-09-22 08:03 | Outpatient (CLI) | payer OTHER ==
[2022-09-22 08:32] LABS: BASOPHILS % (AUTO) 0.5 %; EOSINOPHILS # (AUTO) 0.1 10^3/uL (0.0-0.7); EOSINOPHILS % (AUTO) 1.9 %; HCT - HEMATOCRIT 43.4 % (37.0-47.0); HGB - HEMOGLOBIN 13.7 g/dL (12.0-16.0); LYMPHOCYTES # (AUTO) 1.7 10^3/uL (1.5-3.5); LYMPHOCYTES % (AUTO) 30.6 %; MEAN CORPUSCULAR HEMOGLOBIN 28.4 pg (27.0-31.0); MEAN CORPUSCULAR HGB CONC 31.6 g/dL (32.0-36.0); MEAN CORPUSCULAR VOLUME 89.9 fL (81.0-99.0); MEAN PLATELET VOLUME 9.1 fL (7.9-10.8); MONOCYTES # (AUTO) 0.4 10^3/uL (0.0-1.0); MONOCYTES % (AUTO) 6.7 %; NEUTROPHILS # (AUTO) 3.4 10^3/uL (1.5-6.6); NEUTROPHILS % (AUTO) 59.9 %; PLT - PLATELET COUNT 226 10^3/uL (130-450); RED BLOOD COUNT 4.83 10^6/uL (4.20-5.40); RED CELL DISTRIBUTION WIDTH 13.8 % (12.0-15.0); WHITE BLOOD COUNT 5.7 x10^3/uL (4.8-10.8)
[2022-09-22 08:47] LABS: % IRON SATURATION 20 % (20-50); ALBUMIN 4.4 g/dL (3.2-5.5); ALBUMIN/GLOBULIN RATIO 1.4 (1.0-2.2); ALKALINE PHOSPHATASE 58 IU/L (42-121); ALT ALANINE AMINOTRANSFERASE 44 IU/L (10-60); AST ASPARTATE AMINOTRANSFERASE 32 IU/L (10-42); BILIRUBIN,TOTAL 0.7 mg/dL (0.2-1.0); BUN - BLOOD UREA NITROGEN 16 mg/dL (6-20); CALCIUM 9.2 mg/dL (8.5-10.3); CARBON DIOXIDE - CO2 23 mmol/L (21-32); CHLORIDE 105 mmol/L (101-111); CHOL/HDL RATIO 2.5 (<4.4); CHOLESTEROL 168 mg/dL; CREATININE 0.8 mg/dL (0.4-1.0); GFR - MDRD 75 (>89); GLUCOSE 108 mg/dL (70-100); HDL CHOLESTEROL 66 mg/dL; IRON 93 ug/dL (28-170); LDL CHOLESTEROL,CALCULATED 86 mg/dL; LDL/HDL RATIO 1.3 (<4.4); POTASSIUM 4.1 mmol/L (3.5-5.0); SODIUM 137 mmol/L (135-145); TOTAL IRON BINDING CAPACITY 456 ug/dL (250-450); TOTAL PROTEIN 7.5 g/dL (6.7-8.2); TRANSFERRIN 326 mg/dL (192-382); TRIGLYCERIDES 81 mg/dL; VLDL CHOLESTEROL 16 mg/dL
[2022-09-22 08:58] LABS: THYROID STIMULATING HORMONE 1.15 uIU/mL (0.34-5.60)
[2022-09-22 09:05] LABS: FERRITIN 56.7 ng/mL (11.0-306.8)
[2022-09-22 09:09] LABS: FOLATE 23.3 ng/mL (5.90 - >24.8)
[2022-09-22 11:22] LABS: ESTIMATED AVERAGE GLUCOSE 114 mg/dL (70-100); HEMOGLOBIN A1c% 5.6 % (4.27-6.07)
[2022-09-23 04:09] LABS: VITAMIN D 25-HYDROXY 39.6 ng/mL (30.0-100.0)
== END 2022-09-22 08:04 | disposition home or self-care (01) ==
LOC: LAB 08:03
PROVIDERS: ATTEND Surgery
DX: Z01.818 Encounter for other preprocedural examination (principal); I10 Essential (primary) hypertension; Z71.3 Dietary counseling and surveillance; Z13.21 Encounter for screening for nutritional disorder; Z13.29 Encounter for screening for other suspected endocrine disorder; E78.5 Hyperlipidemia, unspecified
CPT/HCPCS: 36415; 80053; 80061; 82306; 82607; 82728; 82746; 83036; 83540; 83721; 83970; 84425; 84443; 84466; 84590; 84630; 85025; 93005

== ENCOUNTER 2022-11-24 11:58 | Emergency (ER) | payer OTHER ==
[2022-11-24] MEDS ORDERED: SODIUM CHLORIDE 0.9% 1,000 ML IV STA (14:03)
--- NOTE | 2022-11-24 14:15 | ED Physician Documentation ---
History of Present Illness - Stated complaint Stated Complaint: FELL/NAUSEA - Chief complaint Chief Complaint: General - Additonal information Additional information: 56-year-old woman presents emergency department after having a lapse in co nsciousness or what appears to be a fainting episode while at work. She does work for 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 She does not remember tripping or falling. She does not remember fainting but she knows that she Suddenly found herself on the ground. She denies a head strike. She states that she does fall frequently because she has a history of lumbar stenosis and will get numbness in her legs though she did not have numbness before this occurred. Since the incident she has been feeling fuzzy, dizzy and just generally unwell. She does have a history of obesity and hypertension. She began taking phentermine several months ago to help lose weight in anticipation of upcoming bariatric surgery. At present she denies chest pain or shortness of air. Denies any previous history of fainting. No recent cough cold or congestion. She does present here with [employer] and [employer] paperwork though given history and exam I do not believe this is a work related incident. Review of Systems Constitutional: reports: Fatigue. denies: Fever Eyes: reports: Reviewed and negative Cardiac: denies: Chest pain / pressure, Palpitations Respiratory: denies: Dyspnea GI: reports: Reviewed and negative : reports: Reviewed and negative Skin: reports: Reviewed and negative Musculoskeletal: reports: Back pain Neurologic: reports: Syncope. denies: Headache, Head injury Psychiatric: reports: Reviewed and negative PD PAST MEDICAL HISTORY - Past Medical History Cardiovascular: Hypertension, High cholesterol Respiratory: Sleep apnea, CPAP use Endocrine/Autoimmune: None GI: GERD : Other HEENT: Chronic vision loss Psych: Depression, Anxiety, Claustrophobia Musculoskeletal: Chronic back pain Derm: None - Past Surgical History General: Cholecystectomy, Colonoscopy, EGD /ACCESS SPEC: section, Hysterectomy, Breast reduction - Present Medications Home Medications: Ambulatory Orders Medication Instructions Recorded Confirmed Citalopram Hydrobromide 40 mg PO DAILY 04/10/19 11/24/22 [Citalopram HBr] Diclofenac Sodium Dr [Voltaren] 75 mg PO BIDWM 04/10/19 11/24/22 Pravastatin Sodium 20 mg PO QPM 04/10/19 11/24/22 carvediloL [Carvedilol] 25 mg PO BID 04/10/19 11/24/22 Lidocaine [Lidoderm] 1 each TP DAILY PRN 09/01/20 11/24/22 Pantoprazole Sodium 20 mg PO BID 09/01/20 11/24/22 Phentermine HCl 15 mg PO DAILY 11/24/22 11/24/22 buPROPion HCL [Bupropion Xl] 150 mg PO DAILY 11/24/22 11/24/22 - Allergies Allergies/Adverse Reactions: Allergies Allergy/AdvReac Type Severity Reaction Status Date / Time Sulfa (Sulfonamide Allergy Rash Verified 11/24/22 12:08 Antibiotics) adhesive AdvReac Itching Verified 11/24/22 12:08 hydrocodone [From Vicodin] AdvReac Itching Verified 11/24/22 12:08 morphine AdvReac Itching Verified 11/24/22 12:08 oxycodone [From Percocet] AdvReac Nausea Verified 11/24/22 12:08 PD ED PE NORMAL - General General: Alert and oriented X 3, No acute distress, Well developed/nourished (Obese) - HEENT HEENT: Atraumatic, Moist mucous membranes - Neck Neck: Supple, no meningeal sign - Cardiac Cardiac: RRR, No murmur - Respiratory Respiratory: No respiratory distress, Clear bilaterally - Abdomen Abdomen: Normal bowel sounds, Soft - Back Back: No CVA TTP - Derm Derm: Normal color, Warm and dry - Extremities Extremities: No deformity - Neuro Neuro: Alert and oriented X 3, crtt 2-12 intact, No motor deficit, Normal speech, Other (Normal gait) Eye Opening: Spontaneous Motor: Obeys Commands Verbal: Oriented GCS Score: 15 Results - Vitals Vitals: Vital Signs - 24 hr 11/24/22 11/24/22 11/24/22 12:08 13:56 14:01 Temperature 36.7 C Heart Rate 76 Heart Rate [ Sitting] Heart Rate [ Standing] Heart Rate [ Supine] Respiratory 18 17 17 Rate Blood Pressure 142/94 H Blood Pressure [Sitting] Blood Pressure [Standing] Blood Pressure [Supine] O2 Saturation 96 11/24/22 11/24/22 11/24/22 14:05 14:13 14:23 Temperature Heart Rate Heart Rate [ 81 Sitting] Heart Rate [ 85 Standing] Heart Rate [ 74 Supine] Respiratory 16 18 Rate Blood Pressure Blood Pressure 115/78 [Sitting] Blood Pressure 124/75 [Standing] Blood Pressure 116/68 [Supine] O2 Saturation 11/24/22 11/24/22 14:46 14:52 Temperature Heart Rate 79 Heart Rate [ Sitting] Heart Rate [ Standing] Heart Rate [ Supine] Respiratory 16 16 Rate Blood Pressure 136/73 H Blood Pressure [Sitting] Blood Pressure [Standing] Blood Pressure [Supine] O2 Saturation 99 Oxygen O2 Source Room air - EKG (time done) 1431 EKG releavant findings:: EKG personally interpreted by author of this note. Relevant findings are: Rate: Rate (enter#) (68) Rhythm: NSR [place]: Normal Intervals: Normal MO QRS: Low voltage Ischemia: Normal ST segments Compare to prior EKG: Changed from prior EKG (Now showing low voltage but no other worrisome findings) Computer interpretation: Agree with computer - Labs Labs: Laboratory Tests 11/24/22 11/24/22 11/24/22 14:11 14:30 14:30 WBC 10.1 RBC 4.47 Hgb 12.8 Hct 40.2 MCV 89.9 MCH 28.6 MCHC 31.8 L RDW 12.8 Plt Count 257 MPV 9.3 Neut # (Auto) 6.2 Lymph # (Auto) 2.9 Avery # (Auto) 0.7 Eos # (Auto) 0.2 Baso # (Auto) 0.1 Absolute Nucleated RBC 0.00 Nucleated RBC % 0.0 Sodium 138 Potassium 4.2 Chloride 103 Carbon Dioxide 25 Anion Gap 10.0 BUN 18 Creatinine 0.6 Estimated GFR (MDRD) 104 Glucose 96 Calcium 9.1 Total Bilirubin 0.6 AST 25 ALT 29 Alkaline Phosphatase 73 Troponin I High Sens Total Protein 7.3 Albumin 4.0 Globulin 3.3 Albumin/Globulin Ratio 1.2 Lipase 43 TSH Free T4 Urine Color YELLOW Urine Clarity CLEAR Urine pH 6.0 Ur Specific [place] 1.010 Urine Protein NEGATIVE Urine Glucose (UA) NEGATIVE Urine Ketones NEGATIVE Urine Occult Blood NEGATIVE Urine Nitrite NEGATIVE Urine Bilirubin NEGATIVE Urine Urobilinogen 0.2 (NORMAL) Ur Leukocyte Esterase SMALL H Urine RBC 0-5 Urine WBC 6-10 H Ur Squamous Epith Cells RARE Squamous Urine Bacteria Few Ur Microscopic Review INDICATED Urine Culture Comments INDICATED 11/24/22 11/24/22 14:30 14:30 WBC RBC Hgb Hct MCV MCH MCHC RDW Plt Count MPV Neut # (Auto) Lymph # (Auto) Avery # (Auto) Eos # (Auto) Baso # (Auto) Absolute Nucleated RBC Nucleated RBC % Sodium Potassium Chloride Carbon Dioxide Anion Gap BUN Creatinine Estimated GFR (MDRD) Glucose Calcium Total Bilirubin AST ALT Alkaline Phosphatase Troponin I High Sens < 2.3 L Total Protein Albumin Globulin Albumin/Globulin Ratio Lipase TSH 1.41 Free T4 0.70 Urine Color Urine Clarity Urine pH Ur Specific El[place] Urine Protein Urine Glucose (UA) Urine Ketones Urine Occult Blood Urine Nitrite Urine Bilirubin Urine Urobilinogen Ur Leukocyte Esterase Urine RBC Urine WBC Ur Squamous Epith Cells Urine Bacteria Ur Microscopic Review Urine Culture Comments - Rads (name of study) cxr Relevant Findings:: Final report received (No acute cardiopulmonary process) PD Medical Decision Making - ED course Complexity details: reviewed results, re-evaluated patient, d/w patient ED course: 56-year-old female presents to the emergency department for evaluation of what sounds like a syncopal episode. She does work for [employer] and was at the job site where homeless camp was being cleaned up. She does not remember a precipitating event but simply found herself on the ground. She denies tripping. She denies feeling unwell prior to the event. Afterwards she got up and felt foggy and hazy but had no focal deficits. The coworkers encouraged her to come to the ER for further evaluation. She does have a history of hypertension depression and obesity. She is currently on phentermine and is being evaluated for likely upcoming gastric bypass surgery. On presentation she denies chest pain or shortness of air. She has no focal neurodeficits. We did obtain a CBC, electrolytes and high-sensitivity troponin. Per my interpretation no acute worrisome findings. Her orthostatic vital signs were measured here in the ER and were essentially normal. An EKG was nonischemic. Chest x-ray did not show any findings of pneumonia, pneumothorax or pleural effusion or cardiomegaly. I did administer the patient 1 L of IV fluid on reevaluation states she is feeling better. By Wells criteria considered low risk for PE. Low suspicion for CVA given lack of focal deficits or headache. She has normal cerebellar exam in addition. It is not clear what the cause of this apparent fainting episode was. While she is been here on the monitor there have been no arrhythmia events. Encouraging patient to follow closely with her PCP. May benefit from outpatient Holter monitor or consideration of an echo or stress test. The usual emergent return precautions worsening symptoms were discussed. Patient had initiated a work place injury accident at the suggestion of the registration department however she does not feel it was work related. I have made this clear in my documentation. Claim number [id number] was completed Departure - Departure Disposition: 01 Home, Self Care Clinical Impression: Syncope Qualifiers: Syncope type: unspecified Qualified Code(s): R55 - Syncope and collapse Condition: Stable Record reviewed to determine appropriate education?: Yes Instructions: ED Fainting Unkn Cause Comments: You are seen today in the emergency department because it sounds like you had a fainting episode while on the worksite cleaning up a homeless camp. While here in the emergency department your CBC, electrolytes and troponin were all normal. Your chest x-ray was also normal did not show any worrisome findings. Your EKG did not show findings consistent with a heart attack. We did check your orthostatic vital signs and they were also normal. At this time it is not clear what the cause of your fainting episode was. I encourage you to discuss very closely with your primary care provider. I feel that you may benefit from outpatient evaluation which could include a Holter monitor or echocardiogram and/or consideration of a stress test. Return to the ER if you have any further fainting episodes, develop chest pain, shortness of air or have any other unusual or emergent concerns
--- NOTE | 2022-11-24 14:30 | XRAY Report ---
PROCEDURE: Chest 1 View X-Ray INDICATIONS: syncope TECHNIQUE: One view of the chest was acquired. COMPARISON: None. FINDINGS: Surgical changes and devices: None. Lungs and pleura: No pleural effusions or pneumothorax. Lungs are clear. Mediastinum: Mediastinal contours appear normal. Heart size is normal. Bones and chest wall: No suspicious bony lesions. Overlying soft tissues appear unremarkable. IMPRESSION: No acute cardiopulmonary process. Reviewed by: Nani Garsia MD on 11/24/2022 2:28 PM PDT Approved by: Nani Garsia MD on 11/24/2022 2:28 PM PDT Station ID: [id number]
[2022-11-24 14:33] LABS: BILIRUBIN,URINE NEGATIVE (NEGATIVE); GLUCOSE, URINE (UA) NEGATIVE (NEGATIVE); KETONES,URINE (UA) NEGATIVE (NEGATIVE); LEUKOCYTE ESTERASE, URINE SMALL (NEGATIVE); NITRITE,URINE NEGATIVE (NEGATIVE); OCCULT BLOOD,URINE NEGATIVE (NEGATIVE); PROTEIN,URINE NEGATIVE (NEGATIVE); UROBILINOGEN,URINE 0.2 (NORMAL) E.U./dL (NORMAL)
[2022-11-24 14:39] LABS: CLARITY,URINE CLEAR (CLEAR)
[2022-11-24 14:40] LABS: BASOPHILS # (AUTO) 0.1 10^3/uL (0.0-0.1); BASOPHILS % (AUTO) 0.7 %; EOSINOPHILS # (AUTO) 0.2 10^3/uL (0.0-0.7); HCT - HEMATOCRIT 40.2 % (37.0-47.0); HGB - HEMOGLOBIN 12.8 g/dL (12.0-16.0); LYMPHOCYTES # (AUTO) 2.9 10^3/uL (1.5-3.5); LYMPHOCYTES % (AUTO) 28.9 %; MEAN CORPUSCULAR HEMOGLOBIN 28.6 pg (27.0-31.0); MEAN CORPUSCULAR HGB CONC 31.8 g/dL (32.0-36.0); MEAN CORPUSCULAR VOLUME 89.9 fL (81.0-99.0); MEAN PLATELET VOLUME 9.3 fL (7.9-10.8); MONOCYTES # (AUTO) 0.7 10^3/uL (0.0-1.0); MONOCYTES % (AUTO) 6.9 %; NEUTROPHILS # (AUTO) 6.2 10^3/uL (1.5-6.6); NEUTROPHILS % (AUTO) 61.2 %; PLT - PLATELET COUNT 257 10^3/uL (130-450); RED BLOOD COUNT 4.47 10^6/uL (4.20-5.40); RED CELL DISTRIBUTION WIDTH 12.8 % (12.0-15.0); WHITE BLOOD COUNT 10.1 x10^3/uL (4.8-10.8)
[2022-11-24 14:46] LABS: BACTERIA,URINE Few /HPF (None Seen); RBC,URINE 0-5 /HPF (0-5); SQUAMOUS EPITHELIAL CELL,UR RARE Squamous (<= Few)
[2022-11-24 14:49] VITALS: BP 136/73
[2022-11-24 15:02] LABS: ALBUMIN/GLOBULIN RATIO 1.2 (1.0-2.2); BILIRUBIN,TOTAL 0.6 mg/dL (0.2-1.0); CALCIUM 9.1 mg/dL (8.5-10.3); CREATININE 0.6 mg/dL (0.4-1.0); POTASSIUM 4.2 mmol/L (3.5-5.0); TOTAL PROTEIN 7.3 g/dL (6.7-8.2)
[2022-11-24 15:17] LABS: THYROID STIMULATING HORMONE 1.41 uIU/mL (0.34-5.60)
[2022-11-24 15:19] LABS: FREE T4 (FREE THYROXINE) 0.7 ng/dL (0.58-1.64)
== END 2022-11-24 16:01 | disposition home or self-care (01) ==
LOC: ED 11:58
DX: R55 Syncope and collapse (principal); I10 Essential (primary) hypertension; E66.9 Obesity, unspecified
CPT/HCPCS: 1040M; 36415; 71045; 80053; 81001; 83690; 84439; 84443; 84484; 85025; 87086; 93005; 99283; 99284; 81003

== ENCOUNTER 2022-12-28 12:30 | Outpatient (CLI) | payer OTHER | END 2022-12-28 12:45 | disposition home or self-care (01) | LOC: LAB.N 12:30 | PROVIDERS: ATTEND Physician Assistant Medical | DX: N30.00 Acute cystitis without hematuria (principal) | CPT/HCPCS: 87086; 87181 ==

== ENCOUNTER 2023-03-24 08:21 | Outpatient (CLI) | payer OTHER ==
[2023-03-24 08:37] LABS: BASOPHILS % (AUTO) 0.6 %; EOSINOPHILS # (AUTO) 0.1 10^3/uL (0.0-0.7); EOSINOPHILS % (AUTO) 1.9 %; HCT - HEMATOCRIT 42.4 % (37.0-47.0); HGB - HEMOGLOBIN 13.5 g/dL (12.0-16.0); LYMPHOCYTES # (AUTO) 1.6 10^3/uL (1.5-3.5); MEAN CORPUSCULAR HEMOGLOBIN 28.5 pg (27.0-31.0); MEAN CORPUSCULAR HGB CONC 31.8 g/dL (32.0-36.0); MEAN CORPUSCULAR VOLUME 89.5 fL (81.0-99.0); MEAN PLATELET VOLUME 9.2 fL (7.9-10.8); MONOCYTES # (AUTO) 0.4 10^3/uL (0.0-1.0); MONOCYTES % (AUTO) 5.8 %; NEUTROPHILS # (AUTO) 4.6 10^3/uL (1.5-6.6); NEUTROPHILS % (AUTO) 67.6 %; PLT - PLATELET COUNT 229 10^3/uL (130-450); RED BLOOD COUNT 4.74 10^6/uL (4.20-5.40); RED CELL DISTRIBUTION WIDTH 13.5 % (12.0-15.0); WHITE BLOOD COUNT 6.8 x10^3/uL (4.8-10.8)
[2023-03-24 08:50] LABS: % IRON SATURATION 18 % (20-50); ALBUMIN 4.5 g/dL (3.2-5.5); ALBUMIN/GLOBULIN RATIO 1.8 (1.0-2.2); ALKALINE PHOSPHATASE 71 IU/L (42-121); ALT ALANINE AMINOTRANSFERASE 23 IU/L (10-60); AST ASPARTATE AMINOTRANSFERASE 23 IU/L (10-42); BILIRUBIN,TOTAL 0.6 mg/dL (0.2-1.0); BUN - BLOOD UREA NITROGEN 15 mg/dL (6-20); CALCIUM 9.9 mg/dL (8.5-10.3); CARBON DIOXIDE - CO2 24 mmol/L (21-32); CHLORIDE 104 mmol/L (101-111); CHOLESTEROL 174 mg/dL; CREATININE 0.7 mg/dL (0.6-1.3); GFR - MDRD 87 (>89); GLUCOSE 103 mg/dL (74-104); HDL CHOLESTEROL 43 mg/dL; IRON 77 ug/dL (50-212); LDL CHOLESTEROL,CALCULATED 99 mg/dL; LDL/HDL RATIO 2.3 (<4.4); SODIUM 137 mmol/L (135-145); TOTAL IRON BINDING CAPACITY 430 ug/dL (250-450); TRANSFERRIN 307 mg/dL (203-362); TRIGLYCERIDES 158 mg/dL (48-352); VLDL CHOLESTEROL 32 mg/dL
[2023-03-24 09:11] LABS: FERRITIN 40.6 ng/mL (11.0-306.8)
[2023-03-25 04:09] LABS: VITAMIN D 25-HYDROXY 43.2 ng/mL (30.0-100.0)
[2023-03-28 07:08] LABS: VITAMIN A SERUM 53.3 ug/dL (20.1-62.0)
== END 2023-03-24 08:22 | disposition home or self-care (01) ==
LOC: LAB 08:21
PROVIDERS: ATTEND Surgery
DX: K91.2 Postsurgical malabsorption, not elsewhere classified (principal); Z71.3 Dietary counseling and surveillance; Z13.21 Encounter for screening for nutritional disorder; Z13.29 Encounter for screening for other suspected endocrine disorder; E78.5 Hyperlipidemia, unspecified
CPT/HCPCS: 36415; 80053; 80061; 82306; 82607; 82728; 82746; 83540; 83721; 83970; 84425; 84466; 84590; 84630; 85025

== ENCOUNTER 2023-05-09 08:00 | Outpatient (CLI) | payer OTHER ==
[2023-05-09 18:29] LABS: BILIRUBIN,URINE NEGATIVE (NEGATIVE); GLUCOSE, URINE (UA) NEGATIVE (NEGATIVE); KETONES,URINE (UA) NEGATIVE (NEGATIVE); LEUKOCYTE ESTERASE, URINE TRACE (NEGATIVE); NITRITE,URINE NEGATIVE (NEGATIVE); OCCULT BLOOD,URINE NEGATIVE (NEGATIVE); PROTEIN,URINE NEGATIVE (NEGATIVE); UROBILINOGEN,URINE 0.2 (NORMAL) E.U./dL (NORMAL)
[2023-05-09 19:13] LABS: CLARITY,URINE CLEAR (CLEAR)
[2023-05-09 19:14] LABS: BACTERIA,URINE Many /HPF (None Seen); RBC,URINE 0-5 /HPF (0-5); SQUAMOUS EPITHELIAL CELL,UR FEW Squamous (<= Few)
== END 2023-05-09 23:59 | disposition home or self-care (01) ==
LOC: LAB 08:00
PROVIDERS: ATTEND Nurse Practitioner
DX: R82.90 Unspecified abnormal findings in urine (principal); M54.50 Low back pain, unspecified; G89.29 Other chronic pain
CPT/HCPCS: 81001

== ENCOUNTER 2023-06-28 15:20 | Outpatient (CLI) | payer OTHER ==
[2023-06-28 18:40] LABS: FERRITIN 43.9 ng/mL (11.0-306.8)
== END 2023-06-28 15:21 | disposition home or self-care (01) ==
LOC: LAB.N 15:20
PROVIDERS: ATTEND Surgery
DX: Z13.21 Encounter for screening for nutritional disorder (principal)
CPT/HCPCS: 36415; 82607; 82728; 83540; 84466

== ENCOUNTER 2023-08-24 10:54 | Outpatient (CLI) | payer OTHER ==
--- NOTE | 2023-08-24 11:27 | Sleep Patient Instructions ---
Sleep Center Visit Summary - Patient Visit Information Reason for Visit: Annual Follow up - Patient Instructions Additional Instructions: You will be completing a sleep study, either an in-lab polysomnography (PSG) or home sleep study (HST). You will follow-up in the sleep care office after the sleep study is completed to hear the results and talk about therapy, if needed. We encourage you to continue to try to lose weight. You will be called by our office staff to schedule this appointment, but you may contact us with any questions. - Clinic Information Contact: [facility] [address] [place] [address] [email or web address] T: [phone]
--- NOTE | 2023-08-24 11:31 | SLEEP CARE CONSULTATION ---
Information from patient questionnaire entered by Lou Rogers. I have reviewed and concur with the information entered by Lou Rogers. This document represents the service I personally performed and the decisions made by me, Marry Le ARNP. History of Present Illness Service Date and Time: 08/24/2023 1054 Previous diagnosis: Mild, Obstructive Sleep Apnea-Hypopnea Syndrome AHI: 5.7 (in 2020) Reason for follow up: annual (LAST SEEN 08/2022) Equipment type: CPAP (RESMED Airsense 11 s/u 05/31) Equipment obtained from: [employer] (not happy with them) Mask style: Nasal (over the nose) Prior sleep studies: Yes Year and Where: 03/2021 [facility] Type of Sleep Study: Home sleep study HPI additional information: COREY YOUNG was diagnosed to have mild, AHI 5.7, obstructive sleep apnea- hypopnea syndrome and returned today for CPAP therapy annual follow-up. Sleep Study - Results Type of Sleep Study: Home sleep study Prior sleep studies: Yes Year and Where: 03/2021 [facility] CPAP Compliance Data - Data Reviewed with Patient Average duration of nightly device use: 8 HRS 9 MINS Compliance rate %: 92 (08/22/22-04/09/23; 214/231 days used) Current pressure setting (cmH2O): 4-15 Average residual AHI: 0.6 Central apnea: 0 Obstructive apnea: 0.5 Average large leak: 0.4 L/min Compliance data discussion: She stopped using her CPAP last March because she felt she was sleeping well without it. Subjective Missed days of use due to: reports: other (stopped CPAP after weight loss) Patient concerns: denies: aerophagia, mask discomfort, air blowing in eyes, mask leak noise, condensation in mask/hose, nasal congestion, dry mouth, nose, throat, epistaxis On therapy, patient: reports: sleeping better, awakening more refreshed, being more awake and alert during the day, more rested overall. denies: drowsiness while driving Initial [place] Sleepiness Scale score: 12 Current [place] Sleepiness Scale score: 2 (08/24/23) Allergies and Home Medications Known drug allergies: Yes (as listed) Drug allergies reviewed: Yes Home medication list reviewed: Yes (no changes) Allergy and home medication list: Allergies Sulfa (Sulfonamide Antibiotics) Allergy (Verified 08/22/23 10:03) Rash adhesive Adverse Reaction (Verified 08/22/23 10:03) Itching hydrocodone [From Vicodin] Adverse Reaction (Verified 08/22/23 10:03) Itching morphine Adverse Reaction (Verified 08/22/23 10:03) Itching oxycodone [From Percocet] Adverse Reaction (Verified 08/22/23 10:03) Nausea Review of Systems Review of systems same as previous: No (GASTRIC SLEEVE 12/2022) Physical Exam Vital signs obtained and entered by: LOU Amezcua MA Blood Pressure: 132/74 (LEFT ARM) Cuff size: regular Heart Rate: 66 O2 Saturation: 98 Height: 5 ft 1 in Weight: 220 lb 3.2 oz Weight change since last visit: 56 lb loss Body Mass Index: 41.5 BMI Classification: Morbidly Obese Impression and Plan 1. Obstructive Sleep Apnea-Hypopnea Syndrome, mild, with good treatment compliance and good apnea control when she was using the machine but she has stopped CPAP therapy since March 2023. She had bariatric sleeve surgery in 12/2022 and has lost about 56 pounds since her last appointment. She says she is sleeping well without the CPAP and does not experience daytime sleepiness. I recommend proceeding to polysomnography to confirm the diagnosis and to assess severity because of her significant weight loss. I obtained agreement to proceed. Patient's apnea severity and rationale for treatment to reduce apnea, improve sleep quality and reduce cardiovascular and cerebrovascular events was reviewed. I also reviewed the benefit of consistent device use of CPAP for hypertension, gastric reflux and depression. 2. Obesity, unspecified. Currently patients BMI is 41.5. She has lost 56 pounds after bariatric sleeve procedure. Obesity increases the risk of apnea, CPAP pressure requirements and overall health risks especially cardiovascular and diabetes. Thus patient is advised to continue to try to lose weight. * PSG to verify diagnosis and severity since having significant weight loss * Contiue to try to lose weight * Call this office if any problems * Return for follow up after the sleep study, or sooner if concerns arise Counseling Topics: Weight loss health impact Follow up with Sleep Care in: other (after sleep study) Plan: PSG/HST Visit Type: In Office Time Spent with Patient (minutes): 23 Provider Statement: I spent 100% of the Face to Face Visit with the patient with greater than 50% spent counseling the patient and coordination of care.
[2023-08-24 11:35] VITALS: BP 132/74; O2SAT 98
== END 2023-08-24 10:55 | disposition home or self-care (01) ==
LOC: SC 10:54
PROVIDERS: ATTEND Nurse Practitioner Family
DX: G47.33 Obstructive sleep apnea (adult) (pediatric) (principal); Z98.84 Bariatric surgery status; E66.01 Morbid (severe) obesity due to excess calories; Z68.41 Body mass index [BMI] 40.0-44.9, adult
CPT/HCPCS: 99212; 99213

== ENCOUNTER 2023-09-23 12:28 | Outpatient (CLI) | payer OTHER | END 2023-09-23 12:29 | disposition home or self-care (01) | LOC: SC 12:28 | PROVIDERS: ATTEND Nurse Practitioner Family | DX: R09.02 Hypoxemia (principal) | CPT/HCPCS: 95806 ==

== ENCOUNTER 2023-10-05 10:38 | Outpatient (CLI) | payer OTHER ==
--- NOTE | 2023-10-05 11:05 | Sleep Patient Instructions ---
Sleep Center Visit Summary - Patient Visit Information Reason for Visit: Sleep study follow-up - Patient Instructions Additional Instructions: Your sleep study today was negative for significant sleep disordered breathing. You may discontinue use of CPAP. Please continue to try to lose weight since weight gain could increase the risk of developing sleep apnea again in the future. Weight loss is best achieved with diet consult. You may contact PCP for referral as needed. Follow-up as needed. - Clinic Information Contact: [facility] [address] [place] [address] [email or web address] T: [phone]
--- NOTE | 2023-10-05 11:08 | SLEEP CARE CONSULTATION ---
Information from patient questionnaire entered by Lucy Rogers. I have reviewed and concur with the information entered by Lucy Rogers. This document represents the service I personally performed and the decisions made by , Marry Le ARNP. History of Present Illness Service Date and Time: 10/05/2023 1038 Initial [place] Sleepiness Scale score: 12 Current [place] Sleepiness Scale score: 5 (10/05/23) Additional HPI information: COREY YOUNG returns for follow up and results of the recently performed home sleep study. The patient was informed of the following findings: No significant sleep disordered breathing with an average AHI of 1 and hermila oxygen saturation of 80%. I explained the pathophysiology behind obstructive sleep apnea. Patient does not have sleep apnea and was advised how weight gain could increase the risk of developing sleep apnea in the future. I strongly encouraged the patient to continue to try to lose weight. Patient counseled not drink alcohol less than 4 hours before bedtime as it can increase snoring and apnea. Patient was cautioned about risks of drowsy driving until sleepiness symptoms resolve. Patient denies drowsy driving. Sleep Study - Results Type of Sleep Study: Home sleep study (COMPLETED 09/25/23) Prior sleep studies: Yes Year and Where: 03/2021 [facility] Polysomnography/Home Sleep Study results: Physician Impression: The quality of the study is fair due to partial loss of pulse oximetry signal. The length of the study is adequate (> 240 minutes). Please also see the tabulated and graphic data. 1. No significant sleep disordered breathing, with an AHI of 1.0/hr and hermila SaO2 of 80%. During the study, the patient had 1 apnea (1 obstructive, 0 central, 0 mixed) and 10 hypopneas. The longest episode lasted 93.0 seconds. The patient slept adequately in supine position (supine AHI was 0.5 and non-supine, 1.48). 2. Hypoxemia (ICD-10 R09.02), minimal, with the lowest oxygen saturation of 80 % and 2.8 minutes with SaO2 under 90%. Baseline oxygen saturation was normal (Average oxygen saturation was 96%). Allergies and Home Medications Known drug allergies: Yes (as listed) Drug allergies reviewed: Yes Home medication list reviewed: Yes (no changes) Allergy and home medication list: Allergies Sulfa (Sulfonamide Antibiotics) Allergy (Verified 10/04/23 16:10) Rash adhesive Adverse Reaction (Verified 10/04/23 16:10) Itching hydrocodone [From Vicodin] Adverse Reaction (Verified 10/04/23 16:10) Itching morphine Adverse Reaction (Verified 10/04/23 16:10) Itching oxycodone [From Percocet] Adverse Reaction (Verified 10/04/23 16:10) Nausea Home Medications Medication Instructions Recorded Confirmed Last Taken Type Citalopram Hydrobromide 40 mg PO DAILY 04/10/19 10/05/23 09/08/20 History [Citalopram HBr] Diclofenac Sodium Dr [Voltaren] 75 mg PO BIDWM 04/10/19 10/05/23 09/08/20 History Pravastatin Sodium 20 mg PO QPM 04/10/19 10/05/23 09/08/20 History carvediloL [Carvedilol] 25 mg PO BID 04/10/19 10/05/23 09/08/20 History Lidocaine [Lidoderm] 1 each TP DAILY PRN 09/01/20 10/05/23 08/26/20 History Pantoprazole Sodium 20 mg PO BID 09/01/20 10/05/23 09/08/20 History Phentermine HCl 15 mg PO DAILY 11/24/22 10/05/23 Unknown History buPROPion HCL [Bupropion Xl] 150 mg PO DAILY 11/24/22 10/05/23 Unknown History Review of Systems Review of systems same as previous: Yes (NO CHANGE) Physical Exam Vital signs obtained and entered by: LUCY Amezcua MA Blood Pressure: 124/82 (LEFT ARM) Cuff size: regular Heart Rate: 68 O2 Saturation: 7 Height: 5 ft 1 in Weight: 213 lb 9.6 oz Weight change since last visit: 7 lb loss Body Mass Index: 40.4 BMI Classification: Morbidly Obese Impression and Plan 1. Obstructive Sleep Apnea-Hypopnea Syndrome, mild. Patient completed HST which shows resolution of sleep apnea with an average AHI of 1.0 with weight loss. She no longer needs treatment for sleep apnea and her CPAP therapy will be discontinued. 2. Morbid Obesity, unspecified. Currently patients BMI is 40.4. Patient was advised to continue weight loss. She has resumed phentermine for weight loss and has lost 7 pounds since her last visit. Obesity increases the risk of apnea and overall health risks especially cardiovascular and diabetes. Thus patient is advised to continue to try to lose weight. * Discontinue CPAP * Continue to try to lose weight * Avoid alcohol consumption near bedtime * Return as needed for follow up. Counseling Topics: Weight loss health impact Prescriptions: Other (Discontinue CPAP) Follow up with Sleep Care in: as needed Visit Type: In Office Time Spent with Patient (minutes): 14 Provider Statement: I spent 100% of the Face to Face Visit with the patient with greater than 50% spent counseling the patient and coordination of care.
[2023-10-05 11:14] VITALS: BP 124/82; O2SAT 7
== END 2023-10-05 10:39 | disposition home or self-care (01) ==
LOC: SC 10:38
PROVIDERS: ATTEND Nurse Practitioner Family
DX: G47.33 Obstructive sleep apnea (adult) (pediatric) (principal); E66.01 Morbid (severe) obesity due to excess calories; Z68.41 Body mass index [BMI] 40.0-44.9, adult
CPT/HCPCS: 99212

== ENCOUNTER 2023-12-08 08:55 | Outpatient (CLI) | payer OTHER ==
[2023-12-08 09:07] LABS: BASOPHILS # (AUTO) 0.1 10^3/uL (0.0-0.1); BASOPHILS % (AUTO) 0.8 %; EOSINOPHILS # (AUTO) 0.2 10^3/uL (0.0-0.7); EOSINOPHILS % (AUTO) 2.3 %; HCT - HEMATOCRIT 42.3 % (37.0-47.0); HGB - HEMOGLOBIN 13.1 g/dL (12.0-16.0); LYMPHOCYTES # (AUTO) 2.2 10^3/uL (1.5-3.5); LYMPHOCYTES % (AUTO) 34.1 %; MEAN CORPUSCULAR HEMOGLOBIN 28.3 pg (27.0-31.0); MEAN CORPUSCULAR VOLUME 91.4 fL (81.0-99.0); MEAN PLATELET VOLUME 8.9 fL (7.9-10.8); MONOCYTES # (AUTO) 0.5 10^3/uL (0.0-1.0); NEUTROPHILS # (AUTO) 3.6 10^3/uL (1.5-6.6); NEUTROPHILS % (AUTO) 55.6 %; PLT - PLATELET COUNT 245 10^3/uL (130-450); RED BLOOD COUNT 4.63 10^6/uL (4.20-5.40); RED CELL DISTRIBUTION WIDTH 13.9 % (12.0-15.0); WHITE BLOOD COUNT 6.4 x10^3/uL (4.8-10.8)
[2023-12-08 09:21] LABS: INR 1.3 (0.8-1.2); PT - PROTHROMBIN TIME 14.1 secs (9.9-12.6)
[2023-12-08 09:24] LABS: ALBUMIN 4.6 g/dL (3.2-5.5); ALBUMIN/GLOBULIN RATIO 1.6 (1.0-2.2); BILIRUBIN,TOTAL 0.5 mg/dL (0.2-1.0); CALCIUM 9.9 mg/dL (8.5-10.3); CREATININE 0.7 mg/dL (0.6-1.3); POTASSIUM 4.3 mmol/L (3.5-4.5); TOTAL PROTEIN 7.4 g/dL (6.4-8.9)
== END 2023-12-08 08:56 | disposition home or self-care (01) ==
LOC: LAB 08:55
PROVIDERS: ATTEND Nurse Practitioner
DX: I10 Essential (primary) hypertension (principal); E66.01 Morbid (severe) obesity due to excess calories
CPT/HCPCS: 36415; 80053; 85025; 85610; 85730

== ENCOUNTER 2024-01-27 08:00 | Outpatient (CLI) | payer OTHER | END 2024-01-27 23:59 | disposition home or self-care (01) | LOC: LAB.S 08:00 | PROVIDERS: ATTEND Emergency Medicine | DX: T81.31XA Disruption of external operation (surgical) wound, not elsewhere classified, initial encounter (principal) | CPT/HCPCS: 87070; 87077; 87205 ==